=== PATIENT | female | born 1930 | race Caucasian/White ===

== ENCOUNTER 2017-07-28 09:23 | Emergency (ER) | payer MEDICARE, OTHER ==
[~2017-07-28] VITALS: Ht 157.5 cm; Wt 58.5 kg
[~2017-07-28 09:23] MED LIST: ASPIR 8181 MG PO; ASPIR-TRIN325 MG PO; ASPIRIN81 M2 PO; COLACE100 MG PO; COZAAR 50 MG TA50 M1 PO; FLEXERIL PO; FLOMAX0.4 MG PO; GLUCOSAMINE CH1 EAC2 PO; GLUCOSAMINE HC500 MG PO; GUAICON DMS LIQ10 M1 PO; HAIR-SKIN-NAIL1 EACH PO; IRON PO; KEFLEX500 M1 PO; METAMUCIL PAC1 UDPKT PO; MILK OF MA2400 MG/10 PO; MIRALAX17 GM PO; MOBIC7.5 MG PO; NATURAL LUTEIN20 MG PO; NEXIUM40 MG PO; PREDNISONE 10 M10 MG PO; PREDNISONE 20 M20 MG PO; SYNTHROID25 MCG PO; TRAMADOL 50 MG50 MG PO; TYLENOL325 MG PO; VITAMIN B12 PO; ZOCOR40 MG PO
[2017-07-28 10:47] LABS: CALCIUM 9.4 mg/dL (8.5-10.1); CREATININE 1.2 mg/dL (0.6-1.3); POTASSIUM 4.5 mmol/L (3.5-5.1)
[2017-07-28 10:49] LABS: ABSOLUTE BASOPHILS 0.1 thou/uL (0.0-0.2); ABSOLUTE EOSINOPHILS 0.2 thou/uL (0.0-0.7); ABSOLUTE LYMPHOCYTES 1.3 thou/uL (0.8-5.3); ABSOLUTE MONOCYTES 0.6 thou/uL (0.0-1.2); ABSOLUTE NEUTROPHILS 2.3 thou/uL (1.6-8.1); BASOPHILS 2.1 %; EOSINOPHILS 3.9 %; HEMATOCRIT 22.8 % (37.0-47.0); LYMPHOCYTES 29.4 %; MCH 19.7 pg (26.0-34.0); MCHC 29.8 g/dL (28.0-37.0); MCV 66.2 fL (80.0-100.0); MONOCYTES 12.5 %; MPV 8.1 fl. (7.2-11.1); NUCLEATED RBCS 0 /100WBC; PLATELET COUNT* 396 thou/uL (150-400); POLYS 52.1 %; RBC 3.44 mil/uL (4.20-5.00); RDW-CV 19.3 % (10.5-14.5); WBC 4.5 thou/uL (4.0-11.0)
[2017-07-28 10:53] LABS: ALBUMIN 3.4 g/dL (3.4-5.0); TOTAL BILIRUBIN 0.3 mg/dL (<0.1-1.0); TOTAL PROTEIN 7.1 g/dL (6.4-8.2)
[2017-07-28 10:54] LABS: HEMOGLOBIN 6.8 gm/dL (12.0-15.0)
[2017-07-28 11:16] LABS: PLATELET ESTIMATE ADEQUATE
[2017-07-28 11:17] LABS: ANISOCYTOSIS 1+; HYPOCHROMASIA 3+; MACROCYTES Occasional; MICROCYTES Occasional; POIKILOCYTOSIS 1+; POLYCHROMASIA Occasional
[2017-07-28 11:18] LABS: OVALOCYTES Occasional
[2017-07-28 14:51] LABS: HEMATOCRIT 25.1 % (37.0-47.0); HEMOGLOBIN 7.7 gm/dL (12.0-15.0)
[2017-07-28 15:30] VITALS: BP 171/89
--- NOTE | 2017-07-28 17:09 | EKG ---
[place] [address] ELECTROCARDIOGRAM REPORT Name: HARDENDEANNE Giovanni Room: [place]#: [id number] Admission: 07/28/17 Attend Phys: Discharge: 07/28/17 Date of : 34 Report #: [id number] THIS REPORT FOR: //name// [facility] ED Test Date: 2017-07-28 Test Time: 10:36:20 Pat Name: DEANNE HARDEN Department: Room: Gender: F Daycare Manager: Dahlia CROWE : 1930 Requested By: Aixa Parikh Order Number: [id number] MD: Matt Garcia Measurements Intervals [place] Rate: 85 P: 41 CA: 142 QRS: 24 QRSD: 83 T: 37 QT: 362 QTc: 431 Interpretive Statements Sinus rhythm Baseline wander in lead(s) V6 Compared to ECG 02/06/2017 10:43:52 Atrial premature complex(es) no longer present T-wave abnormality no longer present Electronically Signed On 07-28-2017 17:09:33 CDT by Matt Garcia [email or web address] <ELECTRONICALLY SIGNED> By: Matt Garcia MD, [facility] 07/28/17 1709 1036 1036 Matt Garcia MD, [facility] /EPI
== END 2017-07-28 15:45 | disposition home or self-care (01) ==
LOC: M.ERS 09:23
PROVIDERS: Personal Emergency Response Attendant
DX: D64.9 Anemia, unspecified (principal); I10 Essential (primary) hypertension; J44.9 Chronic obstructive pulmonary disease, unspecified; Z91.041 Radiographic dye allergy status; Z88.5 Allergy status to narcotic agent; Z90.49 Acquired absence of other specified parts of digestive tract; Z90.710 Acquired absence of both cervix and uterus; Z96.641 Presence of right artificial hip joint

== ENCOUNTER 2017-07-28 17:46 | Inpatient (IN) | payer MEDICARE, OTHER ==
[~2017-07-28] VITALS: Ht 160 cm; Wt 60.3 kg
--- NOTE | ~2017-07-28 | PROC ---
[address] [address] PROCEDURE REPORT Name: DEANNE HARDEN Room: [address] IN .R.#: [id number] Admission: 07/28/17 Attend Phys: Jair Brown MD Discharge: Date of : 32 Report #: [id number] THIS REPORT FOR: //name// For GI report, please see the Provation report in Perceptive 7 content. By: 0702Medical Records Staff SHAKIRA /MILDRED
[2017-07-28 17:56] VITALS: BP 156/82
[2017-07-28 18:27] LABS: ABSOLUTE BASOPHILS 0.1 thou/uL (0.0-0.2); ABSOLUTE EOSINOPHILS 0.2 thou/uL (0.0-0.7); ABSOLUTE LYMPHOCYTES 1.8 thou/uL (0.8-5.3); ABSOLUTE MONOCYTES 0.8 thou/uL (0.0-1.2); ABSOLUTE NEUTROPHILS 3.2 thou/uL (1.6-8.1); BASOPHILS 1.2 %; EOSINOPHILS 3.6 %; HEMATOCRIT 27.5 % (37.0-47.0); HEMOGLOBIN 8.5 gm/dL (12.0-15.0); LYMPHOCYTES 29.5 %; MCHC 30.8 g/dL (28.0-37.0); MONOCYTES 13.8 %; MPV 8.4 fl. (7.2-11.1); NUCLEATED RBCS 0 /100WBC; PLATELET COUNT* 374 thou/uL (150-400); POLYS 51.9 %; RBC 3.85 mil/uL (4.20-5.00); RDW-CV 22.5 % (10.5-14.5); WBC 6.1 thou/uL (4.0-11.0)
[2017-07-28 18:31] LABS: MCV 71.4 fL (80.0-100.0)
[2017-07-28 18:32] LABS: CALCIUM 8.6 mg/dL (8.5-10.1); CREATININE 1.5 mg/dL (0.6-1.3); POTASSIUM 4.6 mmol/L (3.5-5.1)
[2017-07-28 18:36] LABS: ALBUMIN 3.2 g/dL (3.4-5.0); TOTAL BILIRUBIN 0.5 mg/dL (<0.1-1.0); TOTAL PROTEIN 7.1 g/dL (6.4-8.2)
[2017-07-28 19:12] LABS: APTT 18.7 Seconds (25.0-31.3); INR 1.1; PROTIME 10.7 Seconds (9.20-11.50)
[2017-07-28 19:46] VITALS: BP 151/73
[2017-07-28 20:00] VITALS: BP 121/49; BP 148/64
[2017-07-29] VITALS: BP 155/62
[2017-07-29 04:00] VITALS: BP 171/75
[2017-07-29 04:36] LABS: ABSOLUTE EOSINOPHILS 0.3 thou/uL (0.0-0.7); ABSOLUTE LYMPHOCYTES 1.8 thou/uL (0.8-5.3); ABSOLUTE MONOCYTES 0.6 thou/uL (0.0-1.2); ABSOLUTE NEUTROPHILS 1.9 thou/uL (1.6-8.1); BASOPHILS 0.9 %; EOSINOPHILS 5.6 %; HEMOGLOBIN 7.4 gm/dL (12.0-15.0); LYMPHOCYTES 39.8 %; MCH 21.7 pg (26.0-34.0); MCHC 31.1 g/dL (28.0-37.0); MCV 69.8 fL (80.0-100.0); MONOCYTES 12.8 %; MPV 8.4 fl. (7.2-11.1); NUCLEATED RBCS 0 /100WBC; PLATELET COUNT* 319 thou/uL (150-400); POLYS 40.9 %; RBC 3.43 mil/uL (4.20-5.00); RDW-CV 22.2 % (10.5-14.5); WBC 4.5 thou/uL (4.0-11.0)
[2017-07-29 04:43] LABS: CALCIUM 8.6 mg/dL (8.5-10.1); CREATININE 1.2 mg/dL (0.6-1.3); POTASSIUM 4.3 mmol/L (3.5-5.1)
--- NOTE | 2017-07-29 06:12 | NUR ---
ASSUMED CARE OF PATIENT AT 1999 THE PATIENT REMAINS SR ON THE MONITOR O2 SAT MAINTAINED ON RA CONTINUES TO BE UP ADLIB ALLOWED NS TO BE CONNECTED AT ADMISSION ASSESSMENT AT 129 SHE EXPRESSED FRUSTRATUION WITH DIFFICULTY SLEEPING DUE TO THE INCREASE NEED TO VOID SHE REQUESTED THAT THE NS BE TURNED OFF "JUST UNTIL MORNING" THE ROUTINE REGIMEN CONTINUES TO BE EFFECTIVE FOR SX MANAGEMENT SAFETY INTERVENTIONS CONTINUE BED LOWERED WHEELS LOCKED CALL LIGHT IN REACH SIDE RAILS UP REPORT TO BE GIVEN TO ONCGENO LOPEZ
[2017-07-29 07:07] LABS: ANISOCYTOSIS 2+; HYPOCHROMASIA 2+; MICROCYTES 3+; OVALOCYTES Occasional
[2017-07-29 07:08] LABS: PLATELET ESTIMATE ADEQUATE
[2017-07-29 07:30] VITALS: BP 163/61
--- NOTE | 2017-07-29 18:56 | NUR ---
ASSESSMENT COMPLETED REFER TO COMPUTER CHARTING. PATIENT MED/ SURG STATUS. PATIENT RESTING IN BED AND SITTING IN HER CHAIR THIS SHIFT. PATIENT UP SELF. REPORTING NO PAIN, NAUSEA OR SHORTNESS OF BREATH. IV SALINE LOCKED. ON ROOM AIR. PATIENT NPO AT MIDNIGHT FOR EGD TOMORROW AM. WILL CONTINUE TO MONITOR THIS SHIFT.
[2017-07-29 20:00] VITALS: BP 159/71
[2017-07-30] VITALS (8 sets, daily range): BP systolic 144–179; BP diastolic 65–86
--- NOTE | 2017-07-30 06:53 | NUR ---
ASSUMED CARE OF PATIENT AT 1900 THE PATIENT REMAINS MED SURG STATUS NOT MONITORED ON TELEPACK O2 SAT MAINTAINED ON RA CONTINUES TO BE UP AD SHEKHAR THE ROUTINE ET PRN REGIMEN CONTINUES TO BE EFFECTIVE FOR SX MANAGEMENT RESTED WELL DURING THE NIGHT THIS AM PREOP CHECKLIST COMPLETED PATIENT SENT TO PACU IN PREPARATION OF PROCEDURE LEFT UNIT AT 0655 REPORT TO BE GIVEN TO ONCOMING JESSICA
[2017-07-30 11:29] LABS: HEMATOCRIT 25.3 % (37.0-47.0); HEMOGLOBIN 7.8 gm/dL (12.0-15.0); MCH 21.5 pg (26.0-34.0); MCHC 30.7 g/dL (28.0-37.0); MCV 70.1 fL (80.0-100.0); MPV 7.8 fl. (7.2-11.1); RBC 3.61 mil/uL (4.20-5.00); RDW-CV 23.1 % (10.5-14.5); WBC 5.1 thou/uL (4.0-11.0)
--- NOTE | 2017-07-30 15:16 | NUR ---
ASSESSMENT COMPLETED REFER TO COMPUTER CHARTING. PATIENT MED/ SURG STATUS. PATIENT REPORTING NO PAIN, NAUSEA OR SHORTNESS OF BREATH. BED IN LOW AND LOCKED POSITION. CALL LIGHT WITHIN REACH. PATIENT BACK FROM EGD THIS AM. PATIENT TOLERATING REGULAR DIET. IV SALINE LOCKED. ON ROOM AIR. PATIENT TO BE TRANSFERED TO ROOM 110. REPORT CALLED TO RN. REPORTING NO QUESTIONS OR CONCERNS AT THIS TIME.
--- NOTE | 2017-07-30 15:34 | NUR ---
PATIENT CAME TO THE FLOOR FROM TELE IN STABLE CONDITION VIA WHEELCHAIR. ORIENTED TO ROOM, CALL LIGHT IS IN REACH, AGREE WITH PREVIOUS NURSES ASSESSMENT. WILL CONTINUE TO MONITOR.
--- NOTE | 2017-07-30 18:34 | NUR ---
PATIENT HAS BEEN ALERT SINCE COMING TO THE FLOOR TODAY. NO COMPLAINTS AT THIS TIME OTHER THAT ARM BEING SORE WHERE IV WAS REMOVED. CALL LIGHT IS IN REACH, PATIENT IS UP AD SHEKHAR IN ROOM. WILL CONTINUE TO MONITOR.
[2017-07-30 23:30] LABS: URINE BILIRUBIN NEGATIVE (Negative); URINE BLOOD NEGATIVE (Negative); URINE CLARITY CLEAR; URINE COLOR YELLOW; URINE GLUCOSE-RANDOM NEGATIVE (Negative); URINE KETONES NEGATIVE (Negative); URINE LEUKOCYTES-REFLEX NEGATIVE (Negative); URINE NITRITE-REFLEX NEGATIVE (Negative); URINE PROTEIN NEGATIVE (Negative); URINE SPECIFIC GRAVITY 1.015 (1.005-1.030); URINE UROBILINOGEN 0.2 E.U./dl (0.2-1.0)
[2017-07-31 03:25] VITALS: BP 165/74
[2017-07-31 04:52] LABS: CALCIUM 8.9 mg/dL (8.5-10.1); CREATININE 1.2 mg/dL (0.6-1.3); POTASSIUM 4.4 mmol/L (3.5-5.1)
[2017-07-31 04:56] LABS: HEMATOCRIT 25.6 % (37.0-47.0); MCH 21.8 pg (26.0-34.0); MCHC 31.1 g/dL (28.0-37.0); MPV 8.8 fl. (7.2-11.1); RBC 3.66 mil/uL (4.20-5.00); RDW-CV 23.6 % (10.5-14.5); WBC 9.9 thou/uL (4.0-11.0)
--- NOTE | 2017-07-31 06:40 | NUR ---
Alert and oriented x 4. She is up independently in the room. At the start of the shift she stated she felt chilled. Her trmp was 101.4 and pulse was 116. Warm blanket was given and tylenol. Later vitals had improved but it was observed that her right arm was swollen and painful. Dr Brown notified and orders recieved. UA was obtained it was negative,chest Xray obtained and it was negative. Temp has decreased and pulse also has decreased. She was also started on Rocephin. She states she is feeling better. Jazzy forman ordered for her rt arm.
[2017-07-31 08:00] VITALS: BP 131/68
--- NOTE | 2017-07-31 08:22 | CON ---
[address] [address] CONSULTATION Name: DEANNE HARDEN Room: [address] IN .R.#: [id number] Admission: 07/28/17 Attend Phys: Jair Brown MD Discharge: Date of : 32 Report #: [id number] THIS REPORT FOR: //name// CC: Jair Lebron DO DATE OF SERVICE: 07/29/2017 REASON FOR CONSULTATION: Anemia. HISTORY OF PRESENT ILLNESS: This is an 87-year-old female, with history of anemia, who underwent upper and lower endoscopy in last December. The patient reports that she was told she has severe diverticulosis and a few small polyps were removed. She denies having been told of any ulcers or source of GI bleeds. She also denies any hematochezia, melena, nausea, vomiting or hematemesis. She reports that her appetite is good, but she is occasionally constipated. She takes MiraLax and stool softener, which help her immensely. The patient had presented to the Emergency Room and found to have hemoglobin in range of 6. She was given 1 unit of packed RBC and was discharged home. The patient's primary care physician had followed up and asked for admission to further work up her severe anemia. PAST MEDICAL HISTORY: Significant for history of COPD, anemia, hypothyroidism, hyperlipidemia, chronic constipation, diverticulosis. ALLERGIES: SIGNIFICANT TO CODEINE AND IODINE. THE PATIENT IS ALSO ALLERGIC TO TAPE. SOCIAL HISTORY: The patient lives alone at home. She drinks a couple of alcoholic beverages per day and denies tobaccoism. FAMILY HISTORY: Negative for GI malignancy. PHYSICAL EXAMINATION: VITAL SIGNS: Reveals blood pressure of 163/61, respirations 16, pulse 91, temperature 98.6. LUNGS: Clear. CARDIOVASCULAR: Regular. ABDOMEN: Soft, nontender, nondistended. Bowel sounds are positive. NEUROLOGIC: The patient is alert, oriented x 3. LABORATORY DATA: Reveal sodium of 142, potassium 4.3, BUN is 21, creatinine 1.2, total bilirubin is 0.5. Liver function tests are all within normal limits. Iron saturation is 5. B12 is also low at 272, folic acid is 18.4. WBC is 4.5, [place] [address] CONSULTATION Name: DEANNE HARDEN Room: [address]#: [id number] Admission: 07/28/17 Attend Phys: Jair Brown MD Discharge: Date of : 32 Report #: [id number] hemoglobin 7.4 with platelets of 319. IMAGING: CT of abdomen and pelvis was obtained on admission. This was significant for widespread colonic diverticulosis without any evidence of diverticulitis. There is a small right indirect inguinal hernia, which contains fat. There is also evidence of atherosclerosis with focal infrarenal ectasia. ASSESSMENT AND PLAN: The patient with iron deficiency anemia who does not take iron at home and has had endoscopic evaluation back in December, which included colonoscopy and upper scope. We will obtain these records. Meanwhile, we will repeat her upper endoscopy since she had history of meloxicam ingestion. If this was negative, we will consider a capsule endoscopy. Meanwhile, we will put her on iron replacement therapy. She also will need B12 injections. In reference to her constipation, we will place her on MiraLax 17 g p.o. at bedtime. We will make further recommendation after upper endoscopy is complete. <ELECTRONICALLY SIGNED> By: Vasiliy Levi MD 07/31/17 0822 1244 1957Vasiliy Levi MD /nt
[2017-07-31 17:35] VITALS: BP 135/62
--- NOTE | 2017-07-31 18:39 | NUR ---
AM ASSESSMENT AND VITAL SIGNS COMPLETED DOCUMENTED. PT HAS CONTINUED TO HAVE CHILLS INTERMITTENTLY BUT NO FURTHER ELEVATED TEMPERATURES. IV ROCEPHIN CONTINUES EVERY 24 HOURS. PT STAND BY ASSIST TO THE BATHROOM, STATES SHE FEELS A LITTLE WEEK. HOURLY ROUNDING AND FALL PRECAUTIONS IN PLACE, NO ACUTE DISTRESS.
[2017-07-31 20:00] VITALS: BP 138/56
[2017-08-01 04:18] LABS: HEMOGLOBIN 7.7 gm/dL (12.0-15.0); MCH 21.7 pg (26.0-34.0); MCHC 30.6 g/dL (28.0-37.0); MCV 70.9 fL (80.0-100.0); MPV 8.2 fl. (7.2-11.1); RBC 3.53 mil/uL (4.20-5.00); RDW-CV 24.3 % (10.5-14.5); WBC 7.9 thou/uL (4.0-11.0)
--- NOTE | 2017-08-01 05:09 | NUR ---
ASSUMED PATIENT CARE AT 1900. PATIETN RESTING IN BED AT THIS TIME. BUDGET ENGINEER COMPLETED DOCUMENTED. AREA OF INFILTRATION ON RIGHT FOREARM RED, SWOLLEN AND TENDER TO THE TOUCH. PATIENT REMAINS AFEBRILE THROUGH THE NIGHT. VITAL SIGNS STABLE. NEW IV STARTED AND IV PATENT TO ABT'S. HOURLY ROUNDING COMPETED DOCUMENTED
[2017-08-01 08:00] VITALS: BP 112/57
--- NOTE | 2017-08-01 14:56 | NUR ---
ARRIVED PER WHEELCHAIR. TRANSFERED SELF TO CART. RIGHT UPPER ARM NOTED TO BE RED WITH EDEMA. PT COMPLAINT OF RIGHT ARM PAIN. LEFT UPPER ARM ASSESSED WITH ULTRASOUND. LEFT ARM BASILIC IDENTIFIED AND NOTED TO BE WIDLEY PATENT. 4FR SINGLE LUMAN POWER MIDLINE PLACED PER HOSPITAL POLICY. LINE TRIMMED TO 13CM AND ADVANCED 13CM TO 0CM EXTERNAL. LINE SECURED AND RELEASED FOR USE. TOLERATED WELL.
[2017-08-01 17:18] VITALS: BP 120/63
--- NOTE | 2017-08-01 18:05 | NUR ---
PT SOMEWHAT PROGRESSING TOWARDS GOALS. VSS. AFEBRILE. US COMPLETED TO NURA. REFER TO RESULTS. PT REQUIRED PLACEMENT OF MIDLINE D/T FREQUENT IV INFILTRATIONS. IV TO RT UPPER ARM/ AXILLARY AREA INFILTRATED THIS SHIFT. ID CONSULTED THIS SHIFT. ORDERS TO OBTAIN CULTURE IF DRAINAGE OR RT ARM NOTED. NO DRAINAGE NOTED THIS SHIFT. WARM MOIST COMPRESSES TO EXTREMETY AND ELEVATED ON PILLOW THIS SHIFT. NO OTHER CONCERNS AT THIS TIME. CLWR. WCTM.
[2017-08-01 20:00] VITALS: BP 135/53
[2017-08-02 00:25] VITALS: BP 125/61
--- NOTE | 2017-08-02 04:32 | NUR ---
PATIENT RESTING COMFORTABLY THROUGHOUT THE NIGHT. VSS ON RA. NO C/O PAIN. PATIENT IS UP AD-SHEKHAR TO THE BATHROOM AND STEADY. MIDLINE TO LEFT UPPER ARM-SL. IV ABT GIVEN WITHOUT ANY ADVERSE SIDE EFFECTS. PATIENT INSTRUCTED TO USE CALL LIGHT WHEN NEEDING ASSISTANCE. HOURLY ROUNDS MADE. WILL CONTINUE WITH PLAN OF CARE AND NURSING TO MONITOR.
[2017-08-02 04:37] LABS: ABSOLUTE BASOPHILS 0.1 thou/uL (0.0-0.2); ABSOLUTE EOSINOPHILS 0.2 thou/uL (0.0-0.7); ABSOLUTE LYMPHOCYTES 1.4 thou/uL (0.8-5.3); ABSOLUTE MONOCYTES 0.8 thou/uL (0.0-1.2); ABSOLUTE NEUTROPHILS 4.3 thou/uL (1.6-8.1); BASOPHILS 0.9 %; EOSINOPHILS 3.3 %; HEMATOCRIT 23.4 % (37.0-47.0); HEMOGLOBIN 7.3 gm/dL (12.0-15.0); LYMPHOCYTES 20.2 %; MCH 21.8 pg (26.0-34.0); MCHC 30.9 g/dL (28.0-37.0); MCV 70.6 fL (80.0-100.0); MONOCYTES 12.3 %; MPV 8.5 fl. (7.2-11.1); NUCLEATED RBCS 0 /100WBC; PLATELET COUNT* 249 thou/uL (150-400); POLYS 63.3 %; RBC 3.32 mil/uL (4.20-5.00); RDW-CV 24.6 % (10.5-14.5); WBC 6.8 thou/uL (4.0-11.0)
[2017-08-02 05:13] LABS: ALBUMIN 2.4 g/dL (3.4-5.0); CALCIUM 8.5 mg/dL (8.5-10.1); CREATININE 1.1 mg/dL (0.6-1.3); POTASSIUM 3.9 mmol/L (3.5-5.1); TOTAL BILIRUBIN 0.1 mg/dL (<0.1-1.0); TOTAL PROTEIN 5.9 g/dL (6.4-8.2)
[2017-08-02 08:00] VITALS: BP 114/65
--- NOTE | 2017-08-02 08:00 | NUR ---
AM ASSESSEMENT COMPLETE, DEFER TO COMPUTER CHARTING. ALERT ORIENTED, DENIES PAIN - DOES REPORT RIGHT ARM SORE, TENDER TO TOUCH. EDEMA AND REDNESS IN RIGHT LOWER ARM NOTED. PATIENT REQUEST DRESSING BE PLACED - STATES DOES'NT WANT GERMS TO GET IN WOUND. NON-ADHERE DRESSING WITH KERLEX DRESSING APPLIED. SUPERVISION GIVEN TO CHAIR, GAIT STEADY. CALL LIGHT WITHIN REACH, WILL MONITOR.
[2017-08-02 10:14] LABS: ANISOCYTOSIS 2+; MICROCYTES 2+; OVALOCYTES Occasional; PLATELET ESTIMATE ADEQUATE
[2017-08-02 10:16] LABS: HYPOCHROMASIA 2+
--- NOTE | 2017-08-02 13:14 | CON ---
[address] [address] CONSULTATION Name: DEANNE HARDEN Room: [address] IN .R.#: [id number] Admission: 07/28/17 Attend Phys: Jair Brown MD Discharge: Date of : 32 Report #: [id number] THIS REPORT FOR: //name// CC: Jair Lebron DATE OF SERVICE: 08/01/2017 ATTENDING PHYSICIAN: Jair Brown M.D. REASON FOR EVALUATION: Right forearm inflammatory process, probably a thrombophlebitis. HISTORY OF PRESENT ILLNESS: This is an 87-year-old who was admitted actually due to abnormal blood work, has anemia. The hemoglobin is 7, it is not precisely certain who developed an inflammatory painful eruption involving her right forearm. This occurred about 24 hours post-admission. She noted developed a bullous type lesion, blistered and there has been some scant drainage. In addition to that, she had fevers up to 101.4 last p.m. Additional evaluation was fairly unremarkable in terms of chest x-ray, urinalysis and blood cultures are pending. She did have an IV placed in her right hand, this is distal from the site of the IV. She is not encephalopathic. She has undergone iron transfusion. ALLERGIES: LISTED TO IODINE AND CODEINE. CURRENT MEDICATIONS: Include ceftriaxone, , ferrous sulfate, cyanocobalamin, aspirin, levothyroxine, pantoprazole. PAST MEDICAL HISTORY: Includes COPD, hypertension, reflux, previous appendectomy, hysterectomy, hemorrhoid surgery. SOCIAL HISTORY: Former smoker, daily ethanol. FAMILY HISTORY: Noncontributory. REVIEW OF SYSTEMS: As above, she denies any pulmonary or gastrointestinal related complaints. PHYSICAL EXAMINATION: GENERAL: She is pleasant, alert, cooperative, appears chronically ill, undernourished. VITAL SIGNS: Temperature 98.5 with a T-max overnight of 101.4, pulse 100, respirations 15, blood pressure 112/57. SKIN: Warm, dry, no rashes. HEENT: Otherwise, [place] [address] CONSULTATION Name: DEANNE HARDEN Giovanni Room: [address]#: [id number] Admission: 07/28/17 Attend Phys: Jair Brown MD Discharge: Date of : 32 Report #: [id number] NECK: Supple. LUNGS: Diminished breath sounds. HEART: Regular. ABDOMEN: Soft, nontender, nondistended. EXTREMITIES: Right upper extremity, in particular the forearm dorsal aspect has an area of subcutaneous hemorrhage with mild degree of inflammation, is quite tender. There is no expressible purulence. GENITOURINARY: Deferred. RECTAL: Deferred. LABORATORY DATA: Lactic acid is 2.4, elevated. CBC: White count 7.9, H and H 7.7 and 25, platelets of 268. Electrolytes: Sodium 140, potassium 4.4, chloride 103, bicarbonate is 26, BUN and creatinine 21 and 1.2. Urinalysis unremarkable. Chest x-ray, no acute process. ASSESSMENT AND PLAN: Right forearm inflammatory process, suspect phlebitis. We will utilize some warm moist heat, try to do a culture. We will wait for the blood culture results and dose with vancomycin presuming it is a coagulase-negative Staph, given the lack of significant toxicity, which may well be resistant to the beta lactams see how she does over the course of the next 24-48 hours. I do not think she assess need for surgical intervention at this point. <ELECTRONICALLY SIGNED> By: Dhiraj Song MD 08/02/17 1314 1233 28Jocaitlyn Song MD /nt
[2017-08-02 15:57] VITALS: BP 132/71
--- NOTE | 2017-08-02 16:00 | NUR ---
PT.ALERT AND ORIENTED. DAUGHTERS AT BEDSIDE. ASKING NURSE AT [facility]ES [facility]ATION WHEN CX WILL BE BACK. RN DID NOT KNOW FOR SURE BUT SAID IT USUALLY TOOK A COUPLE OF DAYS. PT.LIVES ALONE BUT DAUGHTERS ARE SUPPORTIVE. SHE SAID SHE LIKES HER HOME. DOES HAVE A HX OF DRINKING DAILY,WHICH SHE ADMITS TO. SHE WANTS TO KNOW WHEN SHE WILL GET TO GO HOME. CM WILL FOLLOW FOR DISCHARGE PLANNING.
--- NOTE | 2017-08-02 16:08 | PATH ---
[facility] [address] [place] [address] PATHOLOGY RPT PROCEDURE Name: REBEKAH HARDEN Room: [address] IN .R.#: [id number] Admission: 07/28/17 Date of : 32 Discharge: Report #: [id number] Path Case #: [id number] [facility] Accession Number: [id number] . 01 Material submitted: . ESOPHAGEAL BIOPSY R/O CELIAC SPRUE . 01 Clinical history: . R/O celiac sprue . 02 Diagnosis: Tissue submitted as "esophageal biopsy rule out celiac sprue": - Normal duodenal mucosa. (KUNAL:db; 08/02/2017) LBQ/08/02/2017 . 02 Electronically signed: . Cornelius James MD, Pathologist NPI- [id number] . 01 Gross description: . Received in formalin labeled "Rebekah Harden, esophageal biopsy R/O celiac sprue," are four segments of price soft tissue measuring 0.7 x 0.5 x 0.3 cm in aggregate dimensions and ranging from 0.3 to 0.4 cm in maximum dimension. The specimen is submitted entirely in cassette A1. (DAC; 08/01/2017) XDC/XDC . 02 CPT . [id number] Performed at: [address], [place], [place] [id number] MD Deondre Mendosa MD Phone: [phone] Performed at: 02 [facility] [address], [place], [place] [id number] MD Cornelius James MD Phone: [phone]
--- NOTE | 2017-08-02 18:08 | NUR ---
UP IN CHAIR IN AM AND IN AFTERNOON. DRESSING REMAINS IN PLACE TO RIGHT ARM, USING HEATING PAD AND ELEVATING RIGHT ARM - ARM TENDER TO TOUCH WITH EDEMA, GIVEN TYLENOL X 1 DURING SHIFT TO ASSIST WITH PAIN AND HEADACHE, REPORTING RELIEF WHEN REASSESSING PAIN CONTROL. RESTING IN BED, CALL LIGHT WITHIN REACH - WILL CONTINUE WITH PLAN OF CARE.
[2017-08-02 20:00] VITALS: BP 146/80
[2017-08-02 21:00] VITALS: BP 146/80
[2017-08-03 03:54] LABS: ABSOLUTE EOSINOPHILS 0.3 thou/uL (0.0-0.7); ABSOLUTE LYMPHOCYTES 1.7 thou/uL (0.8-5.3); ABSOLUTE MONOCYTES 0.8 thou/uL (0.0-1.2); ABSOLUTE NEUTROPHILS 3.7 thou/uL (1.6-8.1); BASOPHILS 0.7 %; EOSINOPHILS 4.8 %; HEMATOCRIT 23.3 % (37.0-47.0); HEMOGLOBIN 7.2 gm/dL (12.0-15.0); LYMPHOCYTES 26.1 %; MCHC 30.8 g/dL (28.0-37.0); MCV 71.5 fL (80.0-100.0); MONOCYTES 11.6 %; MPV 8.5 fl. (7.2-11.1); NUCLEATED RBCS 0 /100WBC; PLATELET COUNT* 280 thou/uL (150-400); POLYS 56.8 %; RBC 3.26 mil/uL (4.20-5.00); RDW-CV 25.6 % (10.5-14.5); WBC 6.5 thou/uL (4.0-11.0)
[2017-08-03 04:35] LABS: CALCIUM 8.6 mg/dL (8.5-10.1); CREATININE 1.1 mg/dL (0.6-1.3); POTASSIUM 3.7 mmol/L (3.5-5.1); TOTAL BILIRUBIN 0.2 mg/dL (<0.1-1.0)
[2017-08-03 04:36] LABS: ALBUMIN 2.3 g/dL (3.4-5.0)
[2017-08-03 04:39] LABS: PREALBUMIN 13.9 mg/dL (18.0-35.7)
[2017-08-03 06:18] LABS: ANISOCYTOSIS 3+; HYPOCHROMASIA 2+; MICROCYTES 2+
--- NOTE | 2017-08-03 07:44 | NUR ---
PATIENT SLEPT MOST OF THE NIGHT. MIDLINE REMAINS SALINE LOCKED. PATIENT HAS NO COMPLAINTS OF PAIN. PATIENT AND FAMILY ARE WANTING ANSWERS ABOUT WHY PATIENT'S HEMOGLOBIN IS STILL ONLY 7.2. PATIENT HAD NO OTHER COMPLAINTS. WILL CONTINUE TO MONITOR.
[2017-08-03 08:00] VITALS: BP 141/71
[2017-08-03 17:25] VITALS: BP 145/107
--- NOTE | 2017-08-03 17:59 | NUR ---
MIDLINE TO RIGHT ARM LEAKING WHEN ANY FLUID FLUSHED. MIDLINE REMOVED. PER PT REQUEST NO ATTEMPT FOR IV ACCESS MADE TONIGHT. WILL NOTIFY DR ELDER
--- NOTE | 2017-08-03 18:08 | NUR ---
PT UP IN CHAIR MOST OF DAY. REPORTS INTERMITTENT SAN AND ARM PAIN. TOLERATING PO WELL. VOIDING WELL
[2017-08-03 20:00] VITALS: BP 154/77
--- NOTE | 2017-08-03 22:03 | NUR ---
PATIENT RESTING IN BED. RT FA RED FROM PREVIOUS IV INFILTRATION, WAS TOLD IN REPORT THAT DR AWARE OF NO IV ACCESS AND WILL ADDRESS IN AM. PATIENT DID NOT GET ROCEPHIN TONIGHT. WILL PAGE
[2017-08-04 04:00] LABS: HEMATOCRIT 22.6 % (37.0-47.0); MCHC 31.1 g/dL (28.0-37.0); MCV 70.8 fL (80.0-100.0); MPV 8.1 fl. (7.2-11.1); RBC 3.19 mil/uL (4.20-5.00); RDW-CV 25.7 % (10.5-14.5); WBC 5.9 thou/uL (4.0-11.0)
--- NOTE | 2017-08-04 04:08 | NUR ---
PATIENT RESTING THROUGHOUT THE NIGHT WITHOUT COMPLAINTS, OF PAIN, DISCOMFORT, SOA. CONT. TO HAVE NO IV ACCESS DUE TO REFUSAL. ON-CALL PHYSICIAN IS AWARE. RT FA WITH REDDNESS AND SWELLING FROM PREVIOUS IV INFILTRATION. DR DELACRUZ WAS ASKED IF A PICC/MIDLINE CONSULT COULD BE PLACE AND HE DID NOT WANT TO MAKE THAT DECISION. WILL CONT. TO MONITOR. CONT. WITH PLAN OF CARE AT THIS TIME.
--- NOTE | 2017-08-04 07:20 | NUR ---
CHANGE OF SHIFT, BEDSIDE REPORT GIVEN PATIENT SEEN IN BED NO REQUESTS AT THIS TIME ASSUMED PATIENT CARE
[2017-08-04 08:00] VITALS: BP 173/90
--- NOTE | 2017-08-04 10:12 | NUR ---
consulted for difficult iv start. left upper arm assessed with ultrasound. left basilic identified and noted to be widley patent. 1 and 3/4 inch piv placed with out difficulty. good brisk blood return with asperation and easy flush. line secured with stat lock and tegaderm. primary nursing aware.
--- NOTE | 2017-08-04 11:33 | NUR ---
WOUND CARE NOTE: CONSULT RECEIVED FOR PHLEBITIS RIGHT ARM. PATIENT WAS JUST ASSESSED BY VASCULAR SURGEON. HE PLANS TO TAKE HER TO O.R. TODAY. WILL DEFER ASSESSMENT AT THIS TIME.
[2017-08-04 12:19] VITALS: BP 161/81; BP 168/70; BP 177/86; BP 180/78; BP 187/82
--- NOTE | 2017-08-04 12:22 | NUR ---
Nutrition: Pt assessed for LOS. She is in OR for abscess drain placement and vein debridement. Admitted for anemia, abscess on Rt forearm. Wt is stable, ~130#. On ABX. Currently NPO for OR. Nutritionally stable. Low risk.
--- NOTE | 2017-08-04 18:12 | NUR ---
REPORT GIVEN TO KWAME LOPEZ ASSUMED PATIENT CARE PATIENT UP IN CHAIR EATING DINNER CALL LIGHT IN REACH
[2017-08-04 20:00] VITALS: BP 146/60
[2017-08-04 20:18] LABS: HEMATOCRIT 26.6 % (37.0-47.0); HEMOGLOBIN 8.5 gm/dL (12.0-15.0)
[2017-08-05 00:25] VITALS: BP 149/68
[2017-08-05 04:37] VITALS: BP 169/92
[2017-08-05 05:00] LABS: HEMATOCRIT 27.6 % (37.0-47.0); HEMOGLOBIN 8.8 gm/dL (12.0-15.0); MCH 23.5 pg (26.0-34.0); MCHC 31.9 g/dL (28.0-37.0); MCV 73.5 fL (80.0-100.0); MPV 7.9 fl. (7.2-11.1); NUCLEATED RBCS 0 /100WBC; PLATELET COUNT* 345 thou/uL (150-400); RBC 3.76 mil/uL (4.20-5.00); RDW-CV 25.1 % (10.5-14.5); WBC 8.6 thou/uL (4.0-11.0)
[2017-08-05 05:23] LABS: ALBUMIN 2.5 g/dL (3.4-5.0); CALCIUM 8.8 mg/dL (8.5-10.1); CREATININE 1.1 mg/dL (0.6-1.3); POTASSIUM 4.2 mmol/L (3.5-5.1); TOTAL BILIRUBIN 0.3 mg/dL (<0.1-1.0); TOTAL PROTEIN 6.3 g/dL (6.4-8.2)
[2017-08-05 05:58] LABS: ABSOLUTE BASOPHILS 0.1 thou/uL (0.0-0.2); ABSOLUTE EOSINOPHILS 0.1 thou/uL (0.0-0.7); ABSOLUTE LYMPHOCYTES 1.9 thou/uL (0.8-5.3); ABSOLUTE MONOCYTES 0.5 thou/uL (0.0-1.2); ANISOCYTOSIS 2+; MACROCYTES 1+; MICROCYTES 1+; PLATELET ESTIMATE ADEQUATE; POIKILOCYTOSIS 2+; POLYCHROMASIA 1+
[2017-08-05 05:59] LABS: OVALOCYTES Occasional; TARGET CELLS Occasional; TEARDROPS Occasional
[2017-08-05 06:00] LABS: SCHISTOCYTES Occasional
--- NOTE | 2017-08-05 08:11 | NUR ---
Alert and oriented x 4. Rt arm in bulky acewrap dressing and it's dry and intact. She has been up to the bathroom with stand by assist. She does very well. She had hydrocodone for rt arm pain last evening and this am. This am she did feel itchy benadryl given. She has slept well.
[2017-08-05 16:09] VITALS: BP 113/53
--- NOTE | 2017-08-05 18:13 | NUR ---
PATIENT ALERT AND ORIENTED X 4. VITAL SIGNS STABLE ON ROOM AIR. AFEBRILE. PERRLA. UP WITH STAND BY ASSIST TO THE BATHROOM. DENIES NAUSEA. PAIN BEING MANAGED WITH PO PAIN MEDICATION. IV PATENT AND SALINE LOCKED. UP TO THE CHAIR FOR MEALS. FOOT PUMPS IN PLACE BILATERALLY WHEN IN BED. DRESSING TO RIGHT ARM CLEAN, DRY, AND INTACT. HOURLY ROUNDS MAINTAINED THROUGHOUT THE SHIFT. CALL LIGHT WITHIN REACH. NURSING WILL CONTINUE TO MONITOR.
[2017-08-05 20:20] VITALS: BP 184/98
[2017-08-06 04:31] LABS: HEMATOCRIT 27.5 % (37.0-47.0); HEMOGLOBIN 8.8 gm/dL (12.0-15.0); MCH 23.6 pg (26.0-34.0); MCHC 31.9 g/dL (28.0-37.0); MCV 74.2 fL (80.0-100.0); MPV 8.4 fl. (7.2-11.1); RBC 3.71 mil/uL (4.20-5.00); WBC 6.8 thou/uL (4.0-11.0)
--- NOTE | 2017-08-06 08:08 | NUR ---
PATIENT HAS SLEPT WELL THROUGHOUT THE NIGHT. PAIN MEDICATION GIVEN AND CHARTED BUT PAIN HAS BEEN WELL CONTROLLED. VSS ON RA. DRESSING TO RIGHT ARM IS C/D/I. IV IN LEFT WRIST-SL. IV ABT GIVEN WITHOUT ANY ADVERSE SIDE EFFECTS. PATIENT IS UP WITH SBA TO THE BATHROOM AND STEADY. PATIENT INSTRUCTED TO USE CALL LIGHT WHEN NEEDING ASSISTANCE. HOURLY ROUNDS MADE. WILL CONTINUE WITH PLAN OF CARE AND NURSING TO MONITOR.
[2017-08-06 16:04] VITALS: BP 143/79
--- NOTE | 2017-08-06 17:12 | NUR ---
PATIENT ALERT AND ORIENTED X 4. VITAL SIGNS STABLE ON ROOM AIR. UP WITH STAND BY ASSIST TO THE BATHROOM. AFEBRILE. PERRLA. IT WAS REQUESTED BY DR. NOLASCO THAT THIS NURSE GIVE THE PATIENT IV IRON. PATIENT AGREED TO IRON INFUSION. DISCONTINUED IV IN LEFT WRIST, AFTER FINISHING THE IV IRON, DUE TO PATIENT STATING HER VEIN "BURNED" UPON FLUSING WITH NORMAL SALINE AFTER IV IRON INFUSION. NEW IV PLACED IN LEFT FOREARM AND FLUSHES WITH NO PROBLEMS. SALINE LOCKED. WILL CONTINUE TO MONITOR PREVIOUS IV SITE FOR FURTHER IRRITAION. PAIN BEING MANAGED WITH PO MEDICATION. DENIES NAUSEA. FOOT PUMPS IN PLACE BILATERALLY WHEN IN BED. UP TO CHAIR FOR MEALS. DRESSING TO RIGHT ARM CLEAN, DRY, AND INTACT. HOURLY ROUNDS MAINTAINED THROUGHOUT THE SHIFT. CALL LIGHT WITHIN REACH. NURSING WILL CONTINUE TO MONITOR.
[2017-08-07 08:00] VITALS: BP 134/72
[2017-08-07] MEDS ORDERED: B12INJ IM (08:23)
--- NOTE | 2017-08-07 08:34 | NUR ---
PATIENT HAS SLEPT WELL THROUGHOUT THE NIGHT. NO C/O PAIN. VSS ON RA. PATIENT IS UP WITH SBA TO THE BATHROOM. DRESSING TO RIGHT ARM IS C/D/I. IV IN LEFT FOREARM-SL. IV ABT GIVEN WITHOUT ANY ADVERSE SIDE EFFECTS. PATIENT INSTRUCTED TO USE CALL LIGHT WHEN NEEDING ASSISTANCE. HOULRY ROUNDS MADE. WILL CONTINUE WITH PLAN OF CARE AND NURSING TO MONITOR.
--- NOTE | 2017-08-07 14:05 | NUR ---
WOUND CARE NOTE: CONSULT RECEIVED FOR PHLEBITIS RIGHT ARM. PATIENT WAS SEEN WITH VASCULAR SURGERY ETL ARCHITECT. PATIENT IS POD #3 FROM AND I&D TO THE RIGHT ARM. MULTIPLE AREAS OF BREAKDOWN WITH SURGICAL INCISION TO THE RIGHT POSTERIOR FOREARM. CLUSTERED, THIS AREA MEASURES 17.5X6X0.5. ECCHYMOSIS NOTED TO REMI-WOUNDS AND PARTIAL THICKNESS TISSUE DESTRUCTION FROM SKIN TEARS. AREA WAS GENTLY CLEANSED, PATTED DRY. 1/4" IODOFORM GAUZE WAS PACKED INTO INCISION SITES. COVERED WITH A NON-ADHERENT DRESSING. THEN COVERED WITH ABD. SECURED WITH KERLIX AND ABIMAEL. PATIENT TOLERATED DRESSING CHANGE, BUT WAS EXTREMELY PAINFUL WITH ANY TACTILE STIMULATION. RECOMMEND FOLLOW UP IN WOUND CENTER UPON DISCHARGE ENCOURAGE GOOD NUTRITION AND HYDRATION FOR WOUND HEALING
--- NOTE | 2017-08-07 14:07 | NUR ---
PT.CONCERNED BECAUSE SHE IS TO HAVE A TEST ON AUGUST 09 ((SMALL BOWEL CAPSULE). THE LETTER SHE HAS SAID SHE HAD TO BE OFF IRON FOR 5 DAYS. SHE SAID SHE HAS HAD IV IRON YESTERDAY. TOLD HER I FELT IT WAS JUST ORAL IRON. CALLED AND CONFIRMED AT [facility]. ETHNIC STUDIES PROFESSOR CHECKED WITH YOANDY ARCHER. INFORMED PT.AND DAUGHTER. HOPEFUL FOR DISCHARGE TOMORROW. SHE WOULD LIKE TO USE [facility] FOR DRESSING CHANGES TO HER ARM. REFERRAL FAXED [facility]. CM WILL FOLLOW FOR DISCHARGE.
[2017-08-07 16:00] VITALS: BP 136/66
--- NOTE | 2017-08-07 20:08 | NUR ---
PATIENT REMAINED ALERT AND ORIENTED X'S 4. VITAL SIGNS AND SPO2 STABLE. IV CLEAN, FLUSHING. PAIN WELL CONTROLLED WITH PAIN MEDS. RIGHT ARM REDRESSED BY WOUND CARE. TOLERATED DIET, NO NAUSEA AND VOMITING. COMPLETED HOURLY ROUNDING. CALL LIGHT WITHIN REACH. WILL CONTINUE TO MONITOR.
--- NOTE | 2017-08-08 04:27 | NUR ---
PATIENT ORIENTED X4 ON HOURLY ROUNDS. DENIES PAIN. UP WITH STAND BY ASSIST. VOIDING ADEQUATELY. TOLERATING DIET. DRESSING DRY AND INTACT TO RIGHT FOREARM. ANTIBIOTICS INFUSED ORDERED. VITALS STABLE ON ROOM AIR. WILL CONTINUE TO MONITOR.
[2017-08-08 05:00] VITALS: BP 165/84
[2017-08-08 08:00] VITALS: BP 145/93
[2017-08-08] MEDS ORDERED: NORCO 5-325 TA1 EACH PO (10:11)
[2017-08-08] MEDS ORDERED: DICLOXACILLIN500 MG PO (10:17)
[2017-08-08 10:35] VITALS: BP 165/84
[2017-08-08] MEDS ORDERED: IRON325 PO (12:02)
--- NOTE | 2017-08-13 15:18 | CON ---
[address] [address] CONSULTATION Name: DEANNE HARDEN Room: [address] IN M.R.#: [id number] Admission: 07/28/17 Attend Phys: Jair Brown MD Discharge: 08/08/17 Date of : 34 Report #: [id number] THIS REPORT FOR: //name// CC: Jair Lebron DATE OF SERVICE: 08/04/2017 REQUESTING PHYSICIAN: Dr. Jair Brown. REASON FOR CONSULTATION: Superficial thrombophlebitis to right forearm with abscess. HISTORY OF PRESENT ILLNESS: The patient is a very pleasant 87-year-old white female who presented with weakness and anemia. She is currently undergoing evaluation for this. She had an IV in her right forearm. This developed superficial thrombophlebitis. Unfortunately, this has now become suppurative thrombophlebitis with staph infection and purulent drainage. REVIEW OF SYSTEMS: A 12-point review of systems was reviewed and negative as per HPI. PAST MEDICAL HISTORY: Significant for angina, anemia, COPD, hypoxia and orthostasis. ALLERGIES: INCLUDE CODEINE, IODINE, AND TAPE. MEDICATIONS: Include aspirin, prednisone. She is now on antibiotics inpatient, simvastatin, levothyroxine, MiraLax, glucosamine, multivitamin, Colace, Tylenol. PAST SURGICAL HISTORY: Significant for hysterectomy, appendectomy, hemorrhoid surgery, femoral hernia repair multiple times. FAMILY HISTORY: Significant for glaucoma and osteoporosis. SOCIAL HISTORY: Denies current tobacco use, but is a former smoker. She drinks 3 drinks per day. PHYSICAL EXAMINATION: GENERAL: She is no acute distress. Alert and oriented. Appears her stated age. HEENT: Normocephalic, atraumatic. NECK: Supple. HEART: [place] [address] CONSULTATION Name: FINADEANNE Giovanni Room: [address]#: [id number] Admission: 07/28/17 Attend Phys: Jair Brown MD Discharge: 08/08/17 Date of : 34 Report #: [id number] LUNGS: Clear. ABDOMEN: Soft, nontender, nondistended. EXTREMITIES: Right upper extremity with tender cord like vein on the dorsal aspect of her forearm. There are multiple areas of purulent drainage consistent with suppurative thrombophlebitis. NEUROLOGIC: Grossly intact. ASSESSMENT: Suppurative thrombophlebitis, left forearm from IV placement. PLAN: We will take the patient this afternoon for incision, drainage and debridement of infected vein. We will take a culture at that time. We will plan to leave a drain. Thank you very much for allowing me to participate in the care of this very pleasant patient. Please feel free to call me if you have any questions or concerns with assessment and plan. <ELECTRONICALLY SIGNED> By: Jonathon Carter DO 08/13/17 1518 [id number] [id number] hilda Arteaga
--- NOTE | 2017-08-13 15:18 | OP ---
[facility] [address] [place] [address] OPERATIVE REPORT Name: DEANNE HARDEN Room: [address] IN .R.#: [id number] Admission: 07/28/17 Attend Phys: Jair Brown MD Discharge: 08/08/17 Date of : 34 Report #: [id number] THIS REPORT FOR: //name// CC: Jair Lebron DATE OF SERVICE: 08/04/2017 PREOPERATIVE DIAGNOSIS: Suppurative thrombophlebitis, right forearm. POSTOPERATIVE DIAGNOSIS: Suppurative thrombophlebitis, right forearm. PROCEDURES: 1. Incision and drainage of abscess, right forearm. 2. Debridement, right forearm vein. SURGEON: Eloy Cooper MD PROCUREMENT INSPECTOR: . COMPLICATIONS: None. ESTIMATED BLOOD LOSS: 10 mL. SPECIMEN: Includes culture for aerobic and anaerobic. ANESTHESIA: General. INDICATIONS FOR PROCEDURE: The patient is a very pleasant 87-year-old white female who is in the hospital for anemia workup. She underwent IV access of her right forearm. This subsequently developed superficial thrombophlebitis. This has become suppurative now with purulent drainage. She is on antibiotics for this, but it continues to worsen. I am recommending drainage and resection of infected vein at this time. Informed consent was obtained from the patient with risks including but not limited to bleeding, infection, need for further surgery, pain, , heart attack, stroke, amputation. The patient understood these risks and was agreeable to proceed. DESCRIPTION OF PROCEDURE: The patient was taken the OR, placed in the supine position. After adequate general anesthesia was initiated, timeout was performed. The patient's right arm was prepped and draped in usual sterile fashion. The patient received appropriate perioperative antibiotics. I created multiple times 4 incisions along the patient's vein. She had a palpable cord with erythema. This is on the dorsal aspect of her forearm. Using a Luann clamp, a pair of pickups and a scalpel, I removed multiple segments of the vein, which were thrombosed. I did not encounter any trevon pus, [place] [address] OPERATIVE REPORT Name: DEANNE HARDEN Room: [address] IN [facility]#: [id number] Admission: 07/28/17 Attend Phys: Jair Brown MD Discharge: 08/08/17 Date of : 34 Report #: [id number] certainly appeared . I removed the vein where I could and then under the bridges between, I tunneled a Parrott drain throughout all 4 incisions. There is an area where there is a fluid collection and abscess. I unroofed this. I cultured this area. I drained a small amount of purulent material from this area. I then controlled bleeding as needed with electrocautery. I dressed the wound with 4 x 4s, Kerlix wrap and Andrea wrap. The patient tolerated the procedure well. She was taken alert and awake to recovery room in good condition. All needle and instrument counts were correct at the end of the case. PLAN: Will be to see how she does with this. Hopefully, the drain will be adequate for allowing drainage of the infection. If not, then she would require more extensive incision and debridement of the remainder of the vein. Hopefully, she will not require this. <ELECTRONICALLY SIGNED> By: Jonathon Carter DO 08/13/17 1518 1450 [id number] Cooper MD /girma
== END 2017-08-08 14:15 | disposition home health service (06) | DRG 982 ==
LOC: M.ERS 17:46 → M.ORTHSURG 18:27 → M.TBA-ER 18:27 → M.2W 19:43 → M.ORTHSURG 07-30 15:22
PROVIDERS: Internal Medicine; Internal Medicine Gastroenterology; Internal Medicine Hematology & Oncology; Nurse Practitioner Adult Health; Nurse Practitioner Family; ADMIT Internal Medicine
PROC: 0DB98ZX Excision of Duodenum, Via Natural or Artificial Opening Endoscopic, Diagnostic (ICD-10-PCS; principal; 2017-07-30)
PROC: B54NZZA Ultrasonography of Left Upper Extremity Veins, Guidance (ICD-10-PCS; 2017-08-01)
PROC: 05HC33Z Insertion of Infusion Device into Left Basilic Vein, Percutaneous Approach (ICD-10-PCS; 2017-08-01)
PROC: 30233N1 Transfusion of Nonautologous Red Blood Cells into Peripheral Vein, Percutaneous Approach (ICD-10-PCS; 2017-08-04)
PROC: 05B90ZZ Excision of Right Brachial Vein, Open Approach (ICD-10-PCS; 2017-08-04)
DX: D50.9 Iron deficiency anemia, unspecified (principal); N17.9 Acute kidney failure, unspecified; R65.10 Systemic inflammatory response syndrome (SIRS) of non-infectious origin without acute organ dysfunction; L02.413 Cutaneous abscess of right upper limb; E53.8 Deficiency of other specified B group vitamins; J44.9 Chronic obstructive pulmonary disease, unspecified; K22.2 Esophageal obstruction; K44.9 Diaphragmatic hernia without obstruction or gangrene; B95.61 Methicillin susceptible Staphylococcus aureus infection as the cause of diseases classified elsewhere; I12.9 Hypertensive chronic kidney disease with stage 1 through stage 4 chronic kidney disease, or unspecified chronic kidney disease; N18.3 Chronic kidney disease, stage 3 (moderate); K21.9 Gastro-esophageal reflux disease without esophagitis; Z96.641 Presence of right artificial hip joint; E78.5 Hyperlipidemia, unspecified; K59.09 Other constipation; K57.90 Diverticulosis of intestine, part unspecified, without perforation or abscess without bleeding; E03.9 Hypothyroidism, unspecified; M19.90 Unspecified osteoarthritis, unspecified site; Z96.1 Presence of intraocular lens; Y84.8 Other medical procedures as the cause of abnormal reaction of the patient, or of later complication, without mention of misadventure at the time of the procedure; Y92.238 Other place in hospital as the place of occurrence of the external cause; Z90.49 Acquired absence of other specified parts of digestive tract; Z90.710 Acquired absence of both cervix and uterus; Z88.6 Allergy status to analgesic agent; Z91.041 Radiographic dye allergy status; Z91.040 Latex allergy status; Z98.42 Cataract extraction status, left eye; Z98.41 Cataract extraction status, right eye; Z87.891 Personal history of nicotine dependence; Z79.2 Long term (current) use of antibiotics; Z79.82 Long term (current) use of aspirin; Z79.899 Other long term (current) drug therapy; Z83.511 Family history of glaucoma; Z82.69 Family history of other diseases of the musculoskeletal system and connective tissue

== ENCOUNTER → 2017-08-15 | Outpatient (CLI) | payer MEDICARE, OTHER ==
[~2017-08-15] MED LIST changes: +B12INJ IM; +DICLOXACILLIN500 MG PO; +IRON325 PO; +NORCO 5-325 TA1 EACH PO
[2017-08-15 12:31] LABS: ABSOLUTE BASOPHILS 0.1 thou/uL (0.0-0.2); ABSOLUTE EOSINOPHILS 0.3 thou/uL (0.0-0.7); ABSOLUTE LYMPHOCYTES 1.1 thou/uL (0.8-5.3); ABSOLUTE MONOCYTES 0.6 thou/uL (0.0-1.2); ABSOLUTE NEUTROPHILS 2.7 thou/uL (1.6-8.1); BASOPHILS 1.7 %; EOSINOPHILS 5.9 %; HEMATOCRIT 31.1 % (37.0-47.0); HEMOGLOBIN 9.8 gm/dL (12.0-15.0); MCH 24.6 pg (26.0-34.0); MCHC 31.4 g/dL (28.0-37.0); MCV 78.2 fL (80.0-100.0); MONOCYTES 12.6 %; MPV 7.4 fl. (7.2-11.1); NUCLEATED RBCS 0 /100WBC; PLATELET COUNT* 469 thou/uL (150-400); POLYS 56.8 %; RBC 3.97 mil/uL (4.20-5.00); RDW-CV 30.6 % (10.5-14.5); WBC 4.8 thou/uL (4.0-11.0)
[2017-08-15 12:51] LABS: ANISOCYTOSIS 2+; HYPOCHROMASIA 2+; PLATELET ESTIMATE ADEQUATE; TARGET CELLS 1+
[2017-08-15 13:04] LABS: % SATURATION 49 % (20-39); IRON 164 ug/dL (50-175)
--- NOTE | 2017-08-29 10:42 | HEMONC ---
[address] [address] HEMATOLOGY ONCOLOGY NOTE Name: DEANNE HARDEN Room: [facility]#: [id number] Admission: 08/15/17 Attend Phys: Cam Salas MD Discharge: Date of : 34 Report #: [id number] THIS REPORT FOR: //name// CC: Martha Salas primary care physician DATE OF SERVICE: 08/15/2017 REASON FOR CONSULTATION: Iron deficiency anemia, unclear etiology. SUBJECTIVE: An 87-year-old female who was seen as a hospital followup. She was given IV iron since she was found to be iron deficient. The patient underwent EGD, which was unremarkable except for hiatal hernia. She had a biopsy, which showed normal duodenal mucosa. Also, she had a capsule endoscopy, results are still pending. The patient received IV iron during hospitalization. Her hemoglobin improved from 6.8 to 8.8 upon discharge. I advised the patient to continue to take her oral iron at this point. REVIEW OF SYSTEMS: All systems were reviewed, were negative except above. PAST MEDICAL, SOCIAL, AND FAMILY HISTORY: Unchanged from previous visits. PHYSICAL EXAMINATION: VITAL SIGNS: Today, temperature is 128/72, pulse is 92, respirations 22, her temperature is 97.0, pulse is 94. GENERAL: The patient was sitting in chair, was not in acute distress. LUNGS: Clear to auscultations bilaterally. HEART: Regular rate and rhythm. S1, S2 within normal limits. ABDOMEN: Soft, nontender, nondistended, bowel sounds positive. LABORATORY DATA: Most recent labs on 08/06/2017, WBC 6.8, hemoglobin 8.8, MCV 74, platelet 339. ASSESSMENT AND PLAN: An 87-year-old female who was diagnosed with iron deficiency anemia, unclear etiology. I would like to wait for her capsule endoscopy. At the same time, she received IV iron during hospitalization and I recommend to continue her oral iron at this point. We will check her CBC, iron profile today and then in the next 4 weeks to evaluate whether she needs any further IV iron. <ELECTRONICALLY SIGNED> By: Cam Salas MD 08/29/17 1042 1139 [id number] Salas MD /nt
== END ==
LOC: M.RTH 05:58 → M.LAB 05:58 → M.RTH 09:00
PROVIDERS: Internal Medicine
DX: D50.9 Iron deficiency anemia, unspecified (principal); J44.1 Chronic obstructive pulmonary disease with (acute) exacerbation

== ENCOUNTER → 2017-08-16 | Outpatient (CLI) | payer MEDICARE, OTHER | LOC: M.WC 00:17 | DX: L02.413 Cutaneous abscess of right upper limb (principal); I10 Essential (primary) hypertension; I80.8 Phlebitis and thrombophlebitis of other sites; K21.9 Gastro-esophageal reflux disease without esophagitis; M06.9 Rheumatoid arthritis, unspecified; J44.9 Chronic obstructive pulmonary disease, unspecified; Z86.718 Personal history of other venous thrombosis and embolism; Z90.710 Acquired absence of both cervix and uterus; Z96.641 Presence of right artificial hip joint; Z98.49 Cataract extraction status, unspecified eye; Z87.891 Personal history of nicotine dependence ==

== ENCOUNTER → 2017-08-23 | Outpatient (CLI) | payer MEDICARE, OTHER | LOC: M.WC 04:04 | DX: L02.413 Cutaneous abscess of right upper limb (principal); I80.8 Phlebitis and thrombophlebitis of other sites; I10 Essential (primary) hypertension; K21.9 Gastro-esophageal reflux disease without esophagitis; M06.9 Rheumatoid arthritis, unspecified; J44.9 Chronic obstructive pulmonary disease, unspecified; Z86.718 Personal history of other venous thrombosis and embolism; Z87.891 Personal history of nicotine dependence; Z90.710 Acquired absence of both cervix and uterus; Z96.641 Presence of right artificial hip joint; Z98.49 Cataract extraction status, unspecified eye ==

== ENCOUNTER → 2017-09-05 | Outpatient (CLI) | payer MEDICARE, OTHER ==
[2017-09-05 10:58] LABS: ABSOLUTE BASOPHILS 0.1 thou/uL (0.0-0.2); ABSOLUTE EOSINOPHILS 0.2 thou/uL (0.0-0.7); ABSOLUTE LYMPHOCYTES 0.9 thou/uL (0.8-5.3); ABSOLUTE MONOCYTES 0.7 thou/uL (0.0-1.2); ABSOLUTE NEUTROPHILS 3.5 thou/uL (1.6-8.1); BASOPHILS 1.2 %; EOSINOPHILS 3.9 %; HEMATOCRIT 35.5 % (37.0-47.0); HEMOGLOBIN 11.5 gm/dL (12.0-15.0); LYMPHOCYTES 17.5 %; MCH 28.4 pg (26.0-34.0); MCHC 32.4 g/dL (28.0-37.0); MCV 87.5 fL (80.0-100.0); MONOCYTES 12.1 %; MPV 7.7 fl. (7.2-11.1); NUCLEATED RBCS 0 /100WBC; PLATELET COUNT* 338 thou/uL (150-400); POLYS 65.3 %; RBC 4.05 mil/uL (4.20-5.00); RDW-CV 29.6 % (10.5-14.5); WBC 5.4 thou/uL (4.0-11.0)
[2017-09-05 11:32] LABS: % SATURATION 17 % (20-39); IRON 61 ug/dL (50-175)
[2017-09-05 11:53] LABS: PLATELET ESTIMATE ADEQUATE
[2017-09-05 11:54] LABS: ANISOCYTOSIS 3+; MACROCYTES 1+; MICROCYTES Occasional; POLYCHROMASIA Occasional
[2017-09-05 11:55] LABS: HYPOCHROMASIA Occasional
[2017-09-05 11:58] LABS: OVALOCYTES Occasional; POIKILOCYTOSIS 1+
== END ==
LOC: M.LAB 10:43
PROVIDERS: Internal Medicine
DX: D50.9 Iron deficiency anemia, unspecified (principal)

== ENCOUNTER → 2017-09-12 | Outpatient (CLI) | payer MEDICARE, OTHER ==
--- NOTE | 2017-09-19 10:19 | HEMONC ---
[address] [address] HEMATOLOGY ONCOLOGY NOTE Name: DEANNE HARDEN Room: [facility].#: [id number] Admission: 09/12/17 Attend Phys: Cam Salas MD Discharge: Date of : 32 Report #: [id number] THIS REPORT FOR: //name// CC: Vasiliy Lebron DO Cam Salas DATE OF SERVICE: 09/12/2017 DIAGNOSES: Iron deficiency anemia. SUBJECTIVE: The patient presented today as 4 weeks followup. She received IV iron during hospitalization and her hemoglobin actually improved from 6.5 on 07/28/2017 to 11.5 on 09/05/2017. Also, her iron profile showed improvement in her ferritin from 12 to 191. She continues to be on oral iron twice a day and she is able to tolerate that. The patient underwent EGD by Dr. Levi on 09/07/2017, which showed hiatal hernia, small to moderate. 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 Also, biopsy has been obtained. The patient had also previously colonoscopy back in 11/2016. REVIEW OF SYSTEMS: The patient's all systems were reviewed, were negative except the above. The patient reported today that her fatigue is significantly less. She has a better appetite. PHYSICAL EXAMINATION: VITAL SIGNS: Today, temperature is 97.0, saturations 95% on room air, pulse is 88, respirations 20, blood pressure is 142/86. GENERAL: The patient was sitting in a chair, was not in acute distress. LUNGS: Clear to auscultations bilaterally. HEART: Regular rate and rhythm. S1, S2 within normal limits. ABDOMEN: Soft, nontender, nondistended, bowel sounds positive. EXTREMITIES: +1 edema bilaterally. LABORATORY DATA: Most recent one WBC on 09/05/2017, WBC 5.4, hemoglobin 11.5, MCV 87.5, corrected from 66.1 on 07/28/2017, platelets 338, RDW 29.6. Ferritin is 191. 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 She received IV iron, continues to be on oral iron supplement twice a day. Her hemoglobin significantly improved by 50% [place] [address] HEMATOLOGY ONCOLOGY NOTE Name: DEANNE HARDEN Room: [facility]#: [id number] Admission: 09/12/17 Attend Phys: Cam Salas MD Discharge: Date of : 34 Report #: [id number] the last 6-7 weeks. I do recommend to continue her oral iron supplement for 6 months. We will follow up in 12 weeks from today with labs. <ELECTRONICALLY SIGNED> By: Cam Salas MD 09/19/17 1019 1011 1453MD hilda Jaeger
== END ==
LOC: M.RTH 03:20
DX: D50.9 Iron deficiency anemia, unspecified (principal)

== ENCOUNTER → 2017-09-13 | Outpatient (CLI) | payer MEDICARE, OTHER | LOC: M.WC 09-07 11:00 | DX: I80.8 Phlebitis and thrombophlebitis of other sites (principal); J44.9 Chronic obstructive pulmonary disease, unspecified; I10 Essential (primary) hypertension; K21.9 Gastro-esophageal reflux disease without esophagitis; M06.9 Rheumatoid arthritis, unspecified; Z87.891 Personal history of nicotine dependence; Z90.710 Acquired absence of both cervix and uterus ==

== ENCOUNTER → 2018-08-06 | Outpatient (CLI) | payer MEDICARE, OTHER | LOC: M.WC 08:00 | DX: I70.248 Atherosclerosis of native arteries of left leg with ulceration of other part of lower leg (principal); L97.822 Non-pressure chronic ulcer of other part of left lower leg with fat layer exposed; I87.2 Venous insufficiency (chronic) (peripheral); I10 Essential (primary) hypertension; J44.9 Chronic obstructive pulmonary disease, unspecified; K21.9 Gastro-esophageal reflux disease without esophagitis; M06.9 Rheumatoid arthritis, unspecified; F41.9 Anxiety disorder, unspecified; Z86.718 Personal history of other venous thrombosis and embolism; Z98.49 Cataract extraction status, unspecified eye; Z90.710 Acquired absence of both cervix and uterus; Z96.641 Presence of right artificial hip joint; Z87.891 Personal history of nicotine dependence ==

== ENCOUNTER → 2018-08-13 | Outpatient (CLI) | payer MEDICARE, OTHER | LOC: M.WC 01:02 | DX: I70.248 Atherosclerosis of native arteries of left leg with ulceration of other part of lower leg (principal); L97.822 Non-pressure chronic ulcer of other part of left lower leg with fat layer exposed; I87.2 Venous insufficiency (chronic) (peripheral); I10 Essential (primary) hypertension; J44.9 Chronic obstructive pulmonary disease, unspecified; K21.9 Gastro-esophageal reflux disease without esophagitis; M06.9 Rheumatoid arthritis, unspecified; Z96.641 Presence of right artificial hip joint; Z87.891 Personal history of nicotine dependence; Z86.718 Personal history of other venous thrombosis and embolism ==

== ENCOUNTER → 2018-08-22 | Outpatient (CLI) | payer MEDICARE, OTHER | LOC: M.WC 00:42 | DX: I70.248 Atherosclerosis of native arteries of left leg with ulceration of other part of lower leg (principal); L97.822 Non-pressure chronic ulcer of other part of left lower leg with fat layer exposed; I87.2 Venous insufficiency (chronic) (peripheral); I10 Essential (primary) hypertension; J44.9 Chronic obstructive pulmonary disease, unspecified; K21.9 Gastro-esophageal reflux disease without esophagitis; M06.9 Rheumatoid arthritis, unspecified; F41.9 Anxiety disorder, unspecified; Z96.641 Presence of right artificial hip joint; Z87.891 Personal history of nicotine dependence; Z86.718 Personal history of other venous thrombosis and embolism ==

== ENCOUNTER → 2018-08-29 | Outpatient (CLI) | payer MEDICARE, OTHER | LOC: M.WC 05:19 | DX: I70.248 Atherosclerosis of native arteries of left leg with ulceration of other part of lower leg (principal); L97.822 Non-pressure chronic ulcer of other part of left lower leg with fat layer exposed; I87.2 Venous insufficiency (chronic) (peripheral); I10 Essential (primary) hypertension; J44.9 Chronic obstructive pulmonary disease, unspecified; M06.9 Rheumatoid arthritis, unspecified; K21.9 Gastro-esophageal reflux disease without esophagitis; F41.9 Anxiety disorder, unspecified; Z96.641 Presence of right artificial hip joint; Z87.891 Personal history of nicotine dependence; Z86.718 Personal history of other venous thrombosis and embolism ==

== ENCOUNTER → 2018-09-05 | Outpatient (CLI) | payer MEDICARE, OTHER | LOC: M.WC 09-01 13:41 | DX: I70.248 Atherosclerosis of native arteries of left leg with ulceration of other part of lower leg (principal); L97.822 Non-pressure chronic ulcer of other part of left lower leg with fat layer exposed; I87.2 Venous insufficiency (chronic) (peripheral); I10 Essential (primary) hypertension; J44.9 Chronic obstructive pulmonary disease, unspecified; K21.9 Gastro-esophageal reflux disease without esophagitis; M06.9 Rheumatoid arthritis, unspecified; F41.9 Anxiety disorder, unspecified; Z86.718 Personal history of other venous thrombosis and embolism; Z87.891 Personal history of nicotine dependence ==

== ENCOUNTER → 2018-09-12 | Outpatient (CLI) | payer MEDICARE, OTHER | LOC: M.WC 03:30 | DX: I70.248 Atherosclerosis of native arteries of left leg with ulceration of other part of lower leg (principal); L97.821 Non-pressure chronic ulcer of other part of left lower leg limited to breakdown of skin; I87.2 Venous insufficiency (chronic) (peripheral); I10 Essential (primary) hypertension; J44.9 Chronic obstructive pulmonary disease, unspecified; K21.9 Gastro-esophageal reflux disease without esophagitis; M06.9 Rheumatoid arthritis, unspecified; Z96.641 Presence of right artificial hip joint; Z87.891 Personal history of nicotine dependence; Z86.718 Personal history of other venous thrombosis and embolism; F41.9 Anxiety disorder, unspecified ==

== ENCOUNTER → 2018-09-20 | Outpatient (CLI) | payer MEDICARE, OTHER | LOC: M.WC 09-19 09:00 | DX: I70.248 Atherosclerosis of native arteries of left leg with ulceration of other part of lower leg (principal); L97.821 Non-pressure chronic ulcer of other part of left lower leg limited to breakdown of skin; I87.2 Venous insufficiency (chronic) (peripheral); I10 Essential (primary) hypertension; J44.9 Chronic obstructive pulmonary disease, unspecified; K21.9 Gastro-esophageal reflux disease without esophagitis; M06.9 Rheumatoid arthritis, unspecified; F41.9 Anxiety disorder, unspecified; Z86.718 Personal history of other venous thrombosis and embolism; Z96.641 Presence of right artificial hip joint; Z87.891 Personal history of nicotine dependence ==

== ENCOUNTER → 2018-10-03 | Outpatient (CLI) | payer MEDICARE, OTHER | LOC: M.WC 05:09 | DX: I70.248 Atherosclerosis of native arteries of left leg with ulceration of other part of lower leg (principal); L97.821 Non-pressure chronic ulcer of other part of left lower leg limited to breakdown of skin; I10 Essential (primary) hypertension; I87.2 Venous insufficiency (chronic) (peripheral); K21.9 Gastro-esophageal reflux disease without esophagitis; M06.9 Rheumatoid arthritis, unspecified; J44.9 Chronic obstructive pulmonary disease, unspecified; F41.9 Anxiety disorder, unspecified; Z86.718 Personal history of other venous thrombosis and embolism; Z87.891 Personal history of nicotine dependence ==